=== PATIENT | female | born 1950 | race Caucasian/White ===

== ENCOUNTER 2017-05-02 14:09 | Emergency (ER) | payer OTHER ==
[2017-05-02 14:25] VITALS: BP 129/73; PULSE 83; TEMP 99.3; BMI 23.8
--- NOTE | 2017-05-02 14:30 | PDOC ---
Rapid Medical Evaluation Chief Complaint: Injury Time Seen by Provider: 05/02/17 14:22 Medical Evaluation: Allergies Allergy/AdvReac Type Severity Reaction Status Date / Time No Known Allergies Allergy Verified 05/02/17 14:25 Vital Signs Temp Pulse Resp BP Pulse Ox 99.3 F 83 20 129/73 99 05/02/17 14:21 05/02/17 14:21 05/02/17 14:21 05/02/17 14:21 05/02/17 14:21 05/02/17 14:26 I have performed a brief in-person evaluation of this patient. The patient presents with a chief complaint of: low back pain s/p falling on ice getting out of car yesterday, pain 01/30 "I need an MRI" Pertinent physical exam findings: tenderness midline lumbar spine, patient ambulatory, no loss of sensation to LE I have ordered the following: nothing The patient will proceed to the ED for further evaluation. Discharge Disposition - Diagnosis Back pain - Referrals Referrals: Mae Hernandez MD [Primary Care Provider] - - Patient Instructions - Post Discharge Activity
[2017-05-02] MEDS ORDERED: IBUPROFEN 400 MG TABLET (FP) PO ONE ×2 (15:51→16:06)
[2017-05-02] MEDS ORDERED: traMADol HCL 50 MG TABLET PO ONE (15:51)
--- NOTE | 2017-05-02 15:54 | PDOC ---
History of Present Illness - General Chief Complaint: Injury Stated Complaint: FELL Time Seen by Provider: 05/02/17 14:22 History Source: Patient - History of Present Illness Occurred: reports: yesterday Severity: reports: severe Pain Location: reports: back Method of Injury: Yes: fall Past History - Past Medical History Allergies/Adverse Reactions: Allergies Allergy/AdvReac Type Severity Reaction Status Date / Time No Known Allergies Allergy Verified 05/02/17 14:25 Home Medications: Ambulatory Orders Amlodipine Besylate [Norvasc -] 2.5 mg PO DAILY 05/01/11 Cholecalciferol (Vitamin D3) [Vitamin D3 -] 1 tab PO BID 05/01/11 Levothyroxine Sodium [Synthroid] 25 mcg PO DAILY #30 07/17/11 Atorvastatin Ca [Lipitor (Restricted To Cardiology)] 20 mg PO HS 10/12/11 Prednisone 15 mg PO DAILY 10/12/11 Ciprofloxacin HCl [Cipro] 500 mg PO BID 10/16/11 Tramadol HCl 50 mg PO Q6H #15 tablet MDD 200 mg 05/02/17 Anemia: (HX ITP-DIAGNOSED) Asthma: No Cancer: Yes (CHRONIC LEUKEMIA X 20 YRS) Cardiac Disorders: No CVA: No COPD: No CHF: No Dementia: No Diabetes: No GI Disorders: No Disorders: No HTN: No Hypercholesterolemia: Yes Liver Disease: Yes (PRIMARY BILIARY CIRRHOSIS X 15 YRS) Seizures: No Thyroid Disease: Yes (HYPOTHYROID) Other medical history: PMR - Surgical History Abdominal Surgery: No Appendectomy: No Cardiac Surgery: No Cholecystectomy: No (LIVER BX, 2000) Lung Surgery: No Neurologic Surgery: No Orthopedic Surgery: Yes (ENDOMETROSIS ABLATION) - Suicide/Smoking/Psychosocial Hx Smoking Status: No Smoking History: Current every day smoker Have you smoked in the past 12 months: No Number of Cigarettes Smoked Daily: 4 If you are a former smoker, when did you quit?: 2001 Information on smoking cessation initiated: No Hx Alcohol Use: No Drug/Substance Use Hx: No Substance Use Type: None Hx Substance Use Treatment: No Review of Systems - Review of Systems Musculoskeletal: Yes: Back Pain. No: Muscle Weakness Neurological: No: Numbness, Tingling *Physical Exam - Vital Signs Last Vital Signs Temp Pulse Resp BP Pulse Ox 99.3 F 83 20 129/73 99 05/02/17 14:21 05/02/17 14:21 05/02/17 14:21 05/02/17 14:21 05/02/17 14:21 - Physical Exam General Appearance: Yes: Appropriately Dressed. No: Apparent Distress HEENT: positive: Normal Voice Neck: positive: Supple Respiratory/Chest: negative: Respiratory Distress Musculoskeletal: positive: Vertebral Tenderness (over tailbone) Extremity: positive: Normal Inspection. negative: Swelling Integumentary: positive: Dry, Warm Neurologic: positive: Fully Oriented, Alert, Normal Mood/Affect ED Treatment Course - RADIOLOGY Radiology Studies Ordered: Category Date Time Status SPINE-LUMBAR SACRAL [RAD] Stat Radiology 05/02/17 15:51 Ordered Medical Decision Making - Medical Decision Making 05/02/17 15:52 67-year-old female, history of primary biliary cirrhosis, polymyalgia rheumatica , chronic neck pain, ITP, leukemia, not currently on treatment here with severe lower back pain status post fall last night. States she fell getting out of her son's car. Pain mostly located to lower back, does not radiate and no sensory changes, bowel or bladder incontinence or saddle anesthesia. No hip pain and able to ambulate. Taking [id number] medication with no relief. Denies any other injuries. Patient well-appearing, in no apparent distress but very tender over tailbone. Pain control in progress. Will get x-ray rule out fracture. 05/02/17 15:53 05/02/17 16:31 XRays neg. Dc w/ pain control and PMD f/u 05/02/17 17:12 *DC/Admit/Observation/Transfer Diagnosis at time of Disposition: Back sprain - Discharge Dispostion Disposition: HOME Condition at time of disposition: Good - Prescriptions Prescriptions: Tramadol HCl 50 mg PO Q6H #15 tablet MDD 200 mg - Referrals Referrals: Mae Hernandez MD [Primary Care Provider] - - Patient Instructions Printed Discharge Instructions: DI for Back Strain or Sprain Additional Instructions: X-ray showed no fracture. You most likely suffered a back sprain. Take medication as directed and follow-up with your PMD - Post Discharge Activity
[2017-05-02] MEDS ORDERED: traMADol HCL 50 MG TABLET ONE (16:06)
== END 2017-05-02 16:36 | disposition home or self-care (01) ==
LOC: JERFT 14:09
DX: S39.012A Strain of muscle, fascia and tendon of lower back, initial encounter (principal); W18.39XA Other fall on same level, initial encounter; Y93.89 Activity, other specified; Y92.410 Unspecified street and highway as the place of occurrence of the external cause; D69.3 Immune thrombocytopenic purpura; G89.29 Other chronic pain; M54.2 Cervicalgia
CPT/HCPCS: 72100-TC; 99281-25

== ENCOUNTER 2017-05-05 23:47 | Emergency (ER) | payer OTHER ==
[2017-05-05 23:59] VITALS: BP 116/67; PULSE 88; TEMP 100.4; BMI 24.2
[2017-05-06] MEDS ORDERED: morphine CARPU-JECT 4 MG/1 ML DISP.SYRIN IM ONE (00:09)
[2017-05-06] MEDS ORDERED: morphine SULFATE 4 MG/ML VIAL ONE (00:13)
--- NOTE | 2017-05-06 00:24 | PDOC ---
History of Present Illness - General Chief Complaint: Back Pain Stated Complaint: LOWER BACK PAIN Time Seen by Provider: 05/06/17 00:08 - History of Present Illness Initial Comments: This 67-year-old woman with multiple medical problems including primary biliary cirrhosis, chronic leukemia (X 20 years), polymyalgia rheumatica, history of ITP and chronic low back pain, visiting her son in the area presents with persistent lower back pain with radiation to bilateral groin areas. She denies trauma and states that she has had chronic low back pain , worsening for a month. Because of her history of leukemia, she is worried about bone metastases. Pain worsens with lying down and is better with movement. She denies dysuria/ hematuria. She states that she urinates frequently but does not have urgency, stating that she drinks large amounts of water she has no difficulty with bowel movements or urinary retention. She has no groin anesthesia. She denies nausea/vomiting/diarrhea. Patient states that she has been seeing her PCP in [place], [place] ( where she usually resides). Because of her history of primary biliary cirrhosis and possible renal disease, she avoids nonsteroidal anti- inflammatories and acetaminophen. Her PCP prescribes morphine sulfateER 15 mg which she takes twice a day. She states this is been helpful for pain control. Patient states that she ran out of her morphine sulfate ER "3 days ago" Patient has a history of being seen by specialty physicians (service vehicle operator/ capacity management specialist/director systems) in [place] but admits to poor compliance with follow up with these doctors. Past History - Past Medical History Allergies/Adverse Reactions: Allergies Allergy/AdvReac Type Severity Reaction Status Date / Time No Known Allergies Allergy Verified 05/05/17 23:48 Home Medications: Ambulatory Orders Amlodipine Besylate [Norvasc -] 2.5 mg PO DAILY 05/01/11 Cholecalciferol (Vitamin D3) [Vitamin D3 -] 1 tab PO BID 05/01/11 Levothyroxine Sodium [Synthroid] 25 mcg PO DAILY #30 07/17/11 Aspirin [ASA -] 325 mg PO DAILY 05/05/17 Diazepam [Valium] 5 mg PO DAILY 05/05/17 Docusate Sodium [Colace] 100 mg PO 05/05/17 Ursodiol [Actigall] 300 mg PO 05/05/17 Morphine Sulfate [Morphine Sulfate ER] 15 mg PO BID #20 tablet.er MDD 2 tabs Anemia: (HX ITP-DIAGNOSED) Asthma: No Cancer: Yes (CHRONIC LEUKEMIA X 20 YRS) Cardiac Disorders: No CVA: No COPD: No CHF: No Dementia: No Diabetes: No GI Disorders: No Disorders: No HTN: No Hypercholesterolemia: Yes Liver Disease: Yes (PRIMARY BILIARY CIRRHOSIS X 15 YRS) Seizures: No Thyroid Disease: Yes (HYPOTHYROID) - Surgical History Abdominal Surgery: No Appendectomy: No Cardiac Surgery: No Cholecystectomy: (LIVER BX, 2000) Lung Surgery: No Neurologic Surgery: No Orthopedic Surgery: Yes (ENDOMETROSIS ABLATION) - Suicide/Smoking/Psychosocial Hx Smoking Status: No Smoking History: Current every day smoker Have you smoked in the past 12 months: No Number of Cigarettes Smoked Daily: 4 If you are a former smoker, when did you quit?: 2001 Information on smoking cessation initiated: Yes 'Breaking Loose' booklet given: 05/05/17 Hx Alcohol Use: No Drug/Substance Use Hx: No Substance Use Type: None Hx Substance Use Treatment: No Review of Systems - Review of Systems Able to Perform ROS?: Yes Comments:: 12 point review of systems is negative except for what is noted in the history of present illness *Physical Exam - Vital Signs Last Vital Signs Temp Pulse Resp BP Pulse Ox 100.4 F H 88 18 116/67 100 05/05/17 23:53 05/05/17 23:53 05/05/17 23:53 05/05/17 23:53 05/05/17 23:53 - Physical Exam Comments: GENERAL: Adult female, standing at bedside, tearful; appearing in moderate distress secondary to lower back pain; alert and oriented 3 HEAD: Normal with no signs of trauma. EYES: PERRLA, EOMI, sclera anicteric, conjunctiva clear. ENT: Ears normal, nares patent, oropharynx clear without exudates. Moist mucous membranes. NECK: Normal range of motion, supple without lymphadenopathy, JVD, or masses. LUNGS: Breath sounds equal, clear to auscultation bilaterally. No wheezes, and no crackles. HEART:Regular rate and rhythm, normal S1 and S2 without murmur, rub or gallop. ABDOMEN:.normal bowel sounds No guarding,tenderness or rebound.No masses No distention. EXTREMITIES: Normal range of motion, no edema. No clubbing or cyanosis. No erythema, or tenderness. NEUROLOGICAL: Cranial nerves II through XII grossly intact. Normal speech. No focal neurological deficits. MUSCULOSKELETAL: Back-mild tenderness to palpation bilateral sacroiliac joints extending anteriorly to pubic rami No anterior hip joint tenderness bilaterally; no pain on movement of either hip joint No pain on straight leg raising; no tenderness/edema/deformity of either thigh/knee/lower leg SKIN: Warm, Dry, normal turgor, no rashes or lesions noted. Progress Note - Progress Note Progress Note: After patient was discharged, medical record was reviewed: Patient was seen at [facility] 3 days ago for lower back pain . She stated at that time that she had fallen the day prior to being evaluated. Lumbar spine x-rays at that time revealed no evidence of fracture or other abnormality. She was prescribed tramadol. Medical Decision Making - Medical Decision Making This 67-year-old woman with a history of chronic back pain treated by her PCP in [place] with morphine sulfate ER 15 mg twice a day(prescription bottle was presented) which she recently ran out of. She has had increasing pain since stopping able to take her morphine sulfate, to the point that she has been crying at night secondary to the pain (according to her son and sister who accompanied the patient to the emergency room). Exam revealed mild to moderate tenderness along the sacroiliac joints bilaterally, extending anteriorly to the pubic rami. Hip joints were nontender and full mobility was present. Lumbar vertebrae were mildly tender. Clinical presentation most consistent with musculoskeletal origin pain of the pelvis. Little evidence present for acute abdominal/pelvic organ process. However, patient needs more workup to fully understand origin of the pain, especially in light of her malignancy and other medical problems. She also needs general medical evaluation. The patient and her son state that she will be in the area for at least the next week. It is imperative that she follow-up with a general medical doctor as well as an orthopedist during that time. Since patient has poor compliance with medical follow-up when she is at home in [place], it was emphasized to her son that he has an opportunity to investigate the origin of her pain more thoroughly. The patient's son has Dr. Hernandez as a PMD, and the patient herself has seen him in the past. The patient should be seen by him within the next few days. Also, referral information for Dr. Mendosa/Josué/Mukul provided. Meanwhile , patient will be given morphine sulfate 4 mg IM for pain control overnight. [facility] WELDING INSTRUCTOR search conducted (#[id number]): No history of narcotic prescriptions in [facility] Prescription for morphine sulfate ER 15 mg twice a day (#20) sent to her pharmacy. *DC/Admit/Observation/Transfer Diagnosis at time of Disposition: Sacroiliac joint pain - Discharge Dispostion Disposition: HOME Condition at time of disposition: Stable - Prescriptions Prescriptions: Morphine Sulfate [Morphine Sulfate ER] 15 mg PO BID #20 tablet.er MDD 2 tabs - Referrals Referrals: Mae Hernandez MD [Staff Physician] - 2 Days Abraham Mendosa MD [Staff Physician] - 3 days - Patient Instructions Printed Discharge Instructions: Sacroiliac Joint Pain Additional Instructions: morphine sulfate ER 15 mg twice a day as previously prescribed Follow-up with within the next 2-3 days Follow-up with orthopedist (Dr. Mendosa group) within the next 3-4 days Return to ER if you have severe persistent pain - Post Discharge Activity
== END 2017-05-06 00:28 | disposition home or self-care (01) ==
LOC: FER 23:47
DX: M53.3 Sacrococcygeal disorders, not elsewhere classified (principal); G89.29 Other chronic pain; C95.10 Chronic leukemia of unspecified cell type not having achieved remission; D69.3 Immune thrombocytopenic purpura; K74.5 Biliary cirrhosis, unspecified; M35.3 Polymyalgia rheumatica
CPT/HCPCS: 99281-25

== ENCOUNTER 2020-08-20 21:26 | Emergency (ER) | payer OTHER ==
[2020-08-20 21:36] VITALS: BP 118/58; PULSE 79; TEMP 97; BMI 23.6
== END 2020-08-20 23:23 | disposition home or self-care (01) ==
LOC: JER 21:26
DX: S22.32XA Fracture of one rib, left side, initial encounter for closed fracture (principal)
CPT/HCPCS: 71046-TC-FY; 99284-25

== ENCOUNTER 2020-11-13 13:54 | Emergency (ER) | payer OTHER ==
[2020-11-13 14:15] VITALS: BMI 24.2
[2020-11-13 16:44] LABS: BASO % 1.8 % (0-2.0); EOS % 4.7 % (0-4.5); HEMOGLOBIN 9.3 GM/dl (10.7-15.3); LYMPH % 15.3 % (8-40); MCH 33.8 pg (25.7-33.7); MCHC 34.5 g/dl (32.0-36.0); MEAN PLT VOLUME 9.9 fl (7.5-11.1); MONO % 12.2 % (3.8-10.2); PLATELET COUNT 133 10^3/uL (134-434); RBC 2.75 M/mm3 (3.60-5.2); RDW 16.3 % (11.6-15.6); WHITE BLOOD COUNT 4.6 K/mm3 (4.0-10.8)
[2020-11-13 16:53] LABS: BILIRUBIN,TOTAL 1.3 mg/dl (0.2-1); CALCIUM 7.9 mg/dl (8.5-10); CREATININE 1.6 mg/dl (0.55-1.3); TOT PROT 6.5 g/dl (6.4-8.2)
[2020-11-13] MEDS ORDERED: POTASSIUM CHLORIDE TABS 20 MEQ TABLET.ER (FP) PO ONE ×2 (17:24→17:28)
[2020-11-13] MEDS ORDERED: KCL 10 MEQ IVPB 20 MEQ/200 ML INFUS.BAG IVPB ONE (17:29)
[2020-11-13] MEDS: KCL 10 MEQ IVPB 10 MEQ/100 ML INFUS.BAG IVPB SCH ×2 (17:50→18:52)
[2020-11-13 21:25] LABS: CALCIUM 7.5 mg/dl (8.5-10); CREATININE 1.5 mg/dl (0.55-1.3)
[2020-11-13] MEDS ORDERED: AMOX TR/POT CLAV 875MG/125MG TABLETS (FP) PO ONE (21:35)
[2020-11-13 21:47] VITALS: BP 133/76; PULSE 78; TEMP 98
[2020-11-13] MEDS ORDERED: AMOX TR/POT CLAV 875MG/125MG TABLETS (FP) ONE (21:49)
== END 2020-11-13 22:00 | disposition home or self-care (01) ==
LOC: FER 13:54
PROC: 3E033NZ Introduction of Analgesics, Hypnotics, Sedatives into Peripheral Vein, Percutaneous Approach (ICD-10-PCS; principal; 2020-11-13)
DX: K52.9 Noninfective gastroenteritis and colitis, unspecified (principal); E87.6 Hypokalemia; N18.9 Chronic kidney disease, unspecified
CPT/HCPCS: 36415; 74176-TC; 80048; 80053; 81003; 83690; 85025; 87086; 99285-25

== ENCOUNTER 2020-12-09 15:22 | Emergency (ER) | payer OTHER ==
[2020-12-09 15:28] VITALS: BP 107/57; PULSE 98; TEMP 98.7; BMI 21.9
[2020-12-09] MEDS ORDERED: FAMOTIDINE 20 MG/50 ML IVPB 20 MG/50 ML MG IVPB ONE ×2 (16:19→16:25)
[2020-12-09] MEDS ORDERED: ONDANSETRON 4 MG/2 ML VIAL IVPUSH ONE (16:20)
[2020-12-09] MEDS ORDERED: ACETAMINOPHEN 325 MG TABLET (FP) PO ONE ×2 (16:22→16:39)
[2020-12-09] MEDS ORDERED: fentaNYL CITRATE 250 MCG/5 ML VIAL IVPUSH ONE (16:24)
[2020-12-09] MEDS ORDERED: ONDANSETRON 4 MG/2 ML VIAL ONE (16:25)
[2020-12-09 16:53] LABS: BASO % 0.3 % (0-2.0); EOS % 1.3 % (0-4.5); HEMOGLOBIN 9.5 GM/dL (10.7-15.3); MCH 33.3 pg (25.7-33.7); MCHC 33.8 g/dl (32.0-36.0); MEAN CELL VOLUME 98.6 fl (80-96); MEAN PLT VOLUME 9.6 fl (7.5-11.1); MONO % 11.4 % (3.8-10.2); PLATELET COUNT 133 10^3/uL (134-434); RBC 2.83 M/mm3 (3.60-5.2); RDW 16.8 % (11.6-15.6); WHITE BLOOD COUNT 10.9 K/mm3 (4.0-10.0)
[2020-12-09] MEDS ORDERED: CEFTRIAXONE 1 MG in DEXTROSE 5%-WATER - 50 ML IVPB ONE (17:05)
[2020-12-09 17:14] LABS: CHLORIDE 107 mmol/L (98-107); SODIUM 137 mmol/L (136-145)
[2020-12-09 17:16] LABS: ANION GAP 10 MMOL/L (8-16); BLOOD UREA NITROGEN 28.6 mg/dL (7-18); CALCIUM 7.9 mg/dL (8.5-10.1); CO2 20 mmol/L (21-32)
[2020-12-09 17:17] LABS: ALBUMIN 2.2 g/dl (3.4-5.0); GLUCOSE,RANDOM 79 mg/dL (74-106)
[2020-12-09 17:19] LABS: CREATININE 2.3 mg/dL (0.55-1.3); SGOT/AST 26 U/L (15-37); SGPT/ALT 13 U/L (13-61)
[2020-12-09 17:21] LABS: BILIRUBIN,TOTAL 1.5 mg/dL (0.2-1); TOT PROT 7.2 g/dl (6.4-8.2)
[2020-12-09 17:22] LABS: ALK PHOS 130 U/L (45-117)
[2020-12-09 17:42] LABS: LIPASE 1816 U/L (73-393)
[2020-12-09] MEDS ORDERED: morphine CARPU-JECT 4 MG/1 ML DISP.SYRIN IVPUSH ONE (18:21)
[2020-12-09 18:39] LABS: CHOLESTEROL 85 mg/dL (50-200); TRIGLYCERIDES 84 mg/dL (0-150)
[2020-12-09 18:40] LABS: LDL CHOLESTEROL (ONLY SJRH) 33 mg/dL (5-100)
[2020-12-09 18:41] LABS: HDL CHOLESTEROL 27 mg/dL (40-60)
[2020-12-09] MEDS ORDERED: morphine SULFATE 4 MG/ML VIAL ONE (19:39)
[2020-12-09] MEDS ORDERED: KCL 10 MEQ IVPB 30 MEQ/300 ML INFUS.BAG IVPB ONE (19:39)
[2020-12-09] MEDS ORDERED: CEFTRIAXONE 1 GM/50 ML BAG ONE (19:39)
[2020-12-09] MEDS: KCL 10 MEQ IVPB 10 MEQ/100 ML INFUS.BAG IVPB SCH ×2 (20:23→23:04)
[2020-12-09] MEDS ORDERED: LACTATED RINGERS SOLUTION 1000 ML INFUS.BAG IV ONE ×2 (22:51)
[2020-12-10] MEDS: KCL 10 MEQ IVPB 10 MEQ/100 ML INFUS.BAG IVPB SCH (01:32)
== END 2020-12-10 01:57 | disposition short-term general hospital (02) ==
LOC: JER 15:22
PROC: 3E033GC Introduction of Other Therapeutic Substance into Peripheral Vein, Percutaneous Approach (ICD-10-PCS; principal; 2020-12-09)
DX: K85.90 Acute pancreatitis without necrosis or infection, unspecified (principal); N17.9 Acute kidney failure, unspecified; D64.9 Anemia, unspecified
CPT/HCPCS: 36415; 70450-TC; 74176-TC; 76700-TC; 80053; 80061; 82140; 82550; 82553; 83690; 84484; 85025; 87040; 93005; 93010; 99285-25; C9803; U0003; U0005

== ENCOUNTER 2020-12-31 13:21 | Inpatient (IN) | payer OTHER ==
[2020-12-31 16:00] LABS: BASO % 0.5 % (0-2.0); EOS % 7.1 % (0-4.5); HEMATOCRIT 22.4 % (32.4-45.2); HEMOGLOBIN 7.6 GM/dL (10.7-15.3); MCH 33.6 pg (25.7-33.7); MCHC 33.9 g/dl (32.0-36.0); MEAN CELL VOLUME 98.8 fl (80-96); MEAN PLT VOLUME 9.3 fl (7.5-11.1); MONO % 8.8 % (3.8-10.2); NEUT % 71.6 % (42.8-82.8); PLATELET COUNT 156 10^3/uL (134-434); RBC 2.26 M/mm3 (3.60-5.2); RDW 17.8 % (11.6-15.6); WHITE BLOOD COUNT 4.3 K/mm3 (4.0-10.0)
[2020-12-31 16:42] LABS: ALBUMIN 2.3 g/dl (3.4-5.0); BLOOD UREA NITROGEN 19.7 mg/dL (7-18); CALCIUM 8.8 mg/dL (8.5-10.1)
[2020-12-31 16:45] LABS: CREATININE 1.5 mg/dL (0.55-1.3)
[2020-12-31 16:47] LABS: TOT PROT 7.9 g/dl (6.4-8.2)
[2020-12-31] MEDS ORDERED: morphine SO4 SUSTAINED ACTING 15 MG TABLET.SA ONE (23:36)
[2020-12-31] MEDS: morphine SO4 SUSTAINED ACTING 15 MG TABLET.SA PO PRN (23:37)
[2021-01-01 02:54] VITALS: BMI 24.7
[2021-01-01] MEDS ORDERED: PT OWN MED DRAWER 7, Y5N ONE ×4 (05:27→16:24)
[2021-01-01] MEDS: URSODIOL 300 MG CAPSULE PO SCH ×2 (06:34→16:47)
[2021-01-01] MEDS: LEVOTHYROXINE NA 50 MCG TABLET (FP) PO SCH (06:34)
[2021-01-01] MEDS: SPIRONOLACTONE 25 MG TABLET PO SCH (09:45)
[2021-01-01] MEDS: LACTULOSE 20 GM/30 ML UDC (FOR ORAL USE ONLY) PO SCH ×2 (09:45→21:49)
[2021-01-01 09:52] LABS: BASO % 1.1 % (0-2.0); EOS % 11.3 % (0-4.5); HEMATOCRIT 22.6 % (32.4-45.2); HEMOGLOBIN 7.8 GM/dL (10.7-15.3); LYMPH % 16.9 % (8-40); MCH 32.9 pg (25.7-33.7); MCHC 34.3 g/dl (32.0-36.0); MEAN CELL VOLUME 95.7 fl (80-96); MEAN PLT VOLUME 8.5 fl (7.5-11.1); MONO % 12.1 % (3.8-10.2); NEUT % 58.6 % (42.8-82.8); PLATELET COUNT 107 10^3/uL (134-434); RBC 2.36 M/mm3 (3.60-5.2); RDW 18.3 % (11.6-15.6); WHITE BLOOD COUNT 3.2 K/mm3 (4.0-10.0)
[2021-01-01 10:17] LABS: CALCIUM 8.6 mg/dL (8.5-10.1)
[2021-01-01 10:21] LABS: CREATININE 1.1 mg/dL (0.55-1.3)
[2021-01-01] MEDS: traZODone HCL 50 MG TABLET (FP) PO SCH (21:49)
[2021-01-02] MEDS: URSODIOL 300 MG CAPSULE PO SCH ×2 (06:54→17:20)
[2021-01-02] MEDS: LEVOTHYROXINE NA 50 MCG TABLET (FP) PO SCH (06:54)
[2021-01-02] MEDS: LACTULOSE 20 GM/30 ML UDC (FOR ORAL USE ONLY) PO SCH ×3 (09:56→21:56)
[2021-01-02] MEDS: SPIRONOLACTONE 25 MG TABLET PO SCH (09:57)
[2021-01-02] MEDS ORDERED: PT OWN MED DRAWER 7, Y5N ONE (10:53)
[2021-01-02] MEDS: morphine SO4 SUSTAINED ACTING 15 MG TABLET.SA PO PRN (21:56)
[2021-01-02] MEDS: traZODone HCL 50 MG TABLET (FP) PO SCH (21:58)
[2021-01-03] MEDS: URSODIOL 300 MG CAPSULE PO SCH ×2 (06:30→18:03)
[2021-01-03] MEDS: LEVOTHYROXINE NA 50 MCG TABLET (FP) PO SCH (06:30)
[2021-01-03] MEDS ORDERED: PT OWN MED DRAWER 7, Y5N ONE (08:02)
[2021-01-03] MEDS: LACTULOSE 20 GM/30 ML UDC (FOR ORAL USE ONLY) PO SCH ×2 (09:23→21:43)
[2021-01-03] MEDS: SPIRONOLACTONE 25 MG TABLET PO SCH (09:23)
[2021-01-03] MEDS: morphine SO4 SUSTAINED ACTING 15 MG TABLET.SA PO PRN (09:29)
[2021-01-03 10:28] LABS: BASO % 1.1 % (0-2.0); HEMATOCRIT 26.1 % (32.4-45.2); LYMPH % 19.3 % (8-40); MCH 33.2 pg (25.7-33.7); MCHC 34.4 g/dl (32.0-36.0); MEAN CELL VOLUME 96.5 fl (80-96); MONO % 9.8 % (3.8-10.2); NEUT % 62.8 % (42.8-82.8); PLATELET COUNT 154 10^3/uL (134-434); RBC 2.71 M/mm3 (3.60-5.2); RDW 19.2 % (11.6-15.6); WHITE BLOOD COUNT 5.5 K/mm3 (4.0-10.0)
[2021-01-03 10:33] LABS: INR 1.5 (0.83-1.09); PROTHROMBIN TIME (PATIENT) 17.9 SEC (9.7-13.0)
[2021-01-03 10:35] LABS: ACTIVATED PTT 38.2 SECONDS (25.2-36.5)
[2021-01-03 10:56] LABS: CALCIUM 9.1 mg/dL (8.5-10.1); CREATININE 1.3 mg/dL (0.55-1.3)
[2021-01-03] MEDS: traZODone HCL 50 MG TABLET (FP) PO SCH (21:43)
[2021-01-04] MEDS ORDERED: PT OWN MED DRAWER 7, Y5N ONE ×2 (06:23→10:14)
[2021-01-04] MEDS: URSODIOL 300 MG CAPSULE PO SCH (06:31)
[2021-01-04] MEDS: LEVOTHYROXINE NA 50 MCG TABLET (FP) PO SCH (06:31)
[2021-01-04] MEDS: LACTULOSE 20 GM/30 ML UDC (FOR ORAL USE ONLY) PO SCH (10:27)
[2021-01-04] MEDS: SPIRONOLACTONE 25 MG TABLET PO SCH (10:27)
[2021-01-04 16:30] VITALS: BP 131/50; PULSE 72; TEMP 98.1
[2021-01-04 18:07] LABS: FREE KAPPA,SERUM 217.4 mg/L (3.3-19.4)
== END 2021-01-04 16:34 | disposition home health service (06) | DRG 841 ==
LOC: JER 13:21 → JERBED 18:27 → OBSVTOIN 22:19 → J8W 01-01 01:41
PROVIDERS: ADMIT Internal Medicine; ATTEND Internal Medicine
PROC: 30233N1 Transfusion of Nonautologous Red Blood Cells into Peripheral Vein, Percutaneous Approach (ICD-10-PCS; principal; 2020-12-31)
DX: C95.90 Leukemia, unspecified not having achieved remission (principal); D69.3 Immune thrombocytopenic purpura; D64.9 Anemia, unspecified; M35.3 Polymyalgia rheumatica; F32.9 Major depressive disorder, single episode, unspecified; E78.5 Hyperlipidemia, unspecified; Z66 Do not resuscitate; K74.60 Unspecified cirrhosis of liver; E03.9 Hypothyroidism, unspecified
CPT/HCPCS: 36415; 36430; 71046-TC-FY; 80048; 80053; 82272; 82728; 82784; 83540; 83550; 83615; 83883; 84155; 84165; 84550; 85025; 85045; 85384; 85610; 85730; 86850; 86900; 86901; 86922; 93005; 93010; 97116-GP; 97161-GP; 99285-25; C9803; G0378; P9058; U0003; U0005

== ENCOUNTER 2021-02-20 17:01 | Emergency (ER) | payer OTHER ==
[2021-02-20 17:20] VITALS: BMI 25.6
[2021-02-20] MEDS ORDERED: SODIUM CHLORIDE 1,000 ML IV STA (17:57)
[2021-02-20] MEDS ORDERED: PIPERACILLIN/TAZOB 4.5 GM 4.5 GM in DEXTROSE 5%-WATER 100 ML IVPB ONE (18:08)
[2021-02-20] MEDS ORDERED: VANCOMYCIN 1 GM in D5W (PRE-DOCKED) 1,000 MG/250 ML IVPB ONE (18:08)
[2021-02-20] MEDS ORDERED: morphine CARPU-JECT 4 MG/1 ML DISP.SYRIN IVPUSH ONE (18:30)
[2021-02-20] MEDS ORDERED: ACETAMINOPHEN 1000 MG/100 ML VIAL IVPB ONE (18:30)
[2021-02-20] MEDS ORDERED: ACETAMINOPHEN INJECTION 100 ML IVPB ONE (18:39)
[2021-02-20] MEDS ORDERED: PIPERACILLIN/TAZOB 4.5 GM 4.5 GM/100 ML BAG IVPB ONE (18:39)
[2021-02-20] MEDS ORDERED: morphine SULFATE 4 MG/ML VIAL ONE (18:39)
[2021-02-20] MEDS ORDERED: VANCOMYCIN 1 GRAM (PRE-DOCKED) 1,000 MG/250 ML BAG IVPB ONE (18:40)
[2021-02-20 19:11] LABS: BASO % 1.2 % (0-2.0); HEMATOCRIT 28.8 % (32.4-45.2); HEMOGLOBIN 9.7 GM/dL (10.7-15.3); MCH 34.6 pg (25.7-33.7); MCHC 33.8 g/dl (32.0-36.0); MEAN CELL VOLUME 102.1 fl (80-96); MONO % 11.1 % (3.8-10.2); NEUT % 73.7 % (42.8-82.8); PLATELET COUNT 132 10^3/uL (134-434); RBC 2.82 M/mm3 (3.60-5.2); RDW 18.2 % (11.6-15.6); WHITE BLOOD COUNT 3.8 K/mm3 (4.0-10.0)
[2021-02-20 19:13] LABS: ALBUMIN 1.9 g/dl (3.4-5.0); BLOOD UREA NITROGEN 23.5 mg/dL (7-18); CALCIUM 8.9 mg/dL (8.5-10.1)
[2021-02-20 19:16] LABS: CREATININE 1.4 mg/dL (0.55-1.3)
[2021-02-20 19:18] LABS: BILIRUBIN,TOTAL 1.3 mg/dL (0.2-1); TOT PROT 7.2 g/dl (6.4-8.2)
[2021-02-21] MEDS ORDERED: HYDROmorphone HCL CARPU-JECT 2 MG/1 ML DISP.SYRIN IVPUSH ONE (00:47)
[2021-02-21] MEDS ORDERED: HYDROmorphone HCl 2 MG/ML VIAL ONE (00:57)
[2021-02-21 03:41] VITALS: BP 105/61; PULSE 60; TEMP 98.1
== END 2021-02-21 03:43 | disposition short-term general hospital (02) ==
LOC: JER 17:01
PROC: 3E0333Z Introduction of Anti-inflammatory into Peripheral Vein, Percutaneous Approach (ICD-10-PCS; principal; 2021-02-20)
PROC: 3E033NZ Introduction of Analgesics, Hypnotics, Sedatives into Peripheral Vein, Percutaneous Approach (ICD-10-PCS; 2021-02-20)
PROC: 3E033NZ Introduction of Analgesics, Hypnotics, Sedatives into Peripheral Vein, Percutaneous Approach (ICD-10-PCS; 2021-02-20)
PROC: 3E03329 Introduction of Other Anti-infective into Peripheral Vein, Percutaneous Approach (ICD-10-PCS; 2021-02-20)
PROC: 3E03329 Introduction of Other Anti-infective into Peripheral Vein, Percutaneous Approach (ICD-10-PCS; 2021-02-20)
PROC: 3E0337Z Introduction of Electrolytic and Water Balance Substance into Peripheral Vein, Percutaneous Approach (ICD-10-PCS; 2021-02-20)
DX: H66.91 Otitis media, unspecified, right ear (principal); H60.21 Malignant otitis externa, right ear; H70.001 Acute mastoiditis without complications, right ear
CPT/HCPCS: 36415; 70481-TC; 80053; 85025; 87040; 96374; 96375; 99285-25; C9803; J0131; Q9967; U0003; U0005

== ENCOUNTER 2021-04-22 18:09 | Inpatient (IN) | payer OTHER ==
[2021-04-22 18:33] VITALS: BMI 23.6
[2021-04-22 21:41] LABS: BASO % 0.6 % (0-2.0); EOS % 4.4 % (0-4.5); HEMATOCRIT 23.8 % (32.4-45.2); LYMPH % 9.5 % (8-40); MCH 33.5 pg (25.7-33.7); MCHC 33.5 g/dl (32.0-36.0); MEAN PLT VOLUME 9.3 fl (7.5-11.1); MONO % 12.8 % (3.8-10.2); NEUT % 72.7 % (42.8-82.8); PLATELET COUNT 126 10^3/uL (134-434); RBC 2.38 M/mm3 (3.60-5.2); RDW 16.3 % (11.6-15.6); WHITE BLOOD COUNT 5.6 K/mm3 (4.0-10.0)
[2021-04-22 22:00] LABS: CHLORIDE 112 mmol/L (98-107); SODIUM 136 mmol/L (136-145)
[2021-04-22 22:01] LABS: CALCIUM 7.9 mg/dL (8.5-10.1)
[2021-04-22 22:02] LABS: ALBUMIN 1.7 g/dl (3.4-5.0); ANION GAP 7 MMOL/L (8-16); BLOOD UREA NITROGEN 27.8 mg/dL (7-18); CO2 16 mmol/L (21-32); GLUCOSE,RANDOM 85 mg/dL (74-106); MAGNESIUM 2.2 mg/dL (1.8-2.4)
[2021-04-22 22:06] LABS: CREATININE 1.7 mg/dL (0.55-1.3); PHOSPHOROUS 3.3 mg/dL (2.5-4.9); SGOT/AST 32 U/L (15-37); SGPT/ALT 21 U/L (13-61)
[2021-04-22 22:07] LABS: BILIRUBIN,TOTAL 1.3 mg/dL (0.2-1); TOT PROT 6.9 g/dl (6.4-8.2)
[2021-04-22 22:08] LABS: ALK PHOS 139 U/L (45-117)
[2021-04-22] MEDS ORDERED: LACTATED RINGERS SOLUTION 1,000 ML IV STA (22:43)
[2021-04-23] MEDS ORDERED: PIPERACILLIN/TAZOB 4.5 GM 4.5 GM in DEXTROSE 5%-WATER 100 ML IVPB ONE ×2 (03:09→08:23)
[2021-04-23] MEDS ORDERED: PIPERACILLIN/TAZOB 4.5 GM 4.5 GM/100 ML BAG IVPB ONE ×3 (03:29→17:02)
[2021-04-23 04:34] LABS: EPI CELLS 10 /uL (0-25.1); HYALINE CASTS 0 /uL (0-3.1); URINE APPEARANCE CLEAR; URINE BACTERIA 101 /uL (0-1359); URINE BILIRUBIN NEGATIVE (NEGATIVE); URINE COLOR YELLOW; URINE GLUCOSE (UA) NEGATIVE (NEGATIVE); URINE KETONE NEGATIVE (NEGATIVE); URINE LEUK ESTERASE TRACE (NEGATIVE); URINE NITRITE NEGATIVE (NEGATIVE); URINE PROTEIN NEGATIVE (NEGATIVE); URINE RBC 1 /uL (0-23.9); URINE UROBILINOGEN 0.2 mg/dL (0.2-1.0); URINE WBC 11 /uL (0-25.8)
[2021-04-23] MEDS ORDERED: POTASSIUM CHLORIDE TABS 20 MEQ TABLET.ER (FP) PO ONE ×2 (05:39→05:45)
[2021-04-23] MEDS ORDERED: LACTATED RINGERS SOLUTION 1000 ML INFUS.BAG IV ONE ×2 (07:18→08:32)
[2021-04-23 09:19] LABS: BASO % 1.4 % (0-2.0); EOS % 4.8 % (0-4.5); HEMATOCRIT 23.6 % (32.4-45.2); HEMOGLOBIN 7.7 GM/dL (10.7-15.3); LYMPH % 13.4 % (8-40); MCH 33.2 pg (25.7-33.7); MCHC 32.8 g/dl (32.0-36.0); MEAN CELL VOLUME 101.3 fl (80-96); MEAN PLT VOLUME 10.1 fl (7.5-11.1); MONO % 12.9 % (3.8-10.2); NEUT % 67.5 % (42.8-82.8); PLATELET COUNT 122 10^3/uL (134-434); RBC 2.33 M/mm3 (3.60-5.2); RDW 16.1 % (11.6-15.6); WHITE BLOOD COUNT 3.5 K/mm3 (4.0-10.0)
[2021-04-23 09:45] LABS: ALBUMIN 1.4 g/dl (3.4-5.0); CALCIUM 7.7 mg/dL (8.5-10.1)
[2021-04-23 09:47] LABS: BLOOD UREA NITROGEN 25.9 mg/dL (7-18)
[2021-04-23 09:49] LABS: CREATININE 1.5 mg/dL (0.55-1.3)
[2021-04-23 09:50] LABS: BILIRUBIN,TOTAL 1.2 mg/dL (0.2-1); TOT PROT 6.2 g/dl (6.4-8.2)
[2021-04-23] MEDS: LACTATED RINGERS SOLUTION 1000 ML INFUS.BAG IV ONE ×2 (10:24→10:30)
[2021-04-23] MEDS ORDERED: LACTULOSE 20 GM/30 ML UDC (FOR ORAL USE ONLY) PO PRN (11:33)
[2021-04-23 14:19] LABS: PROTHROMBIN TIME (PATIENT) 23.5 SEC (9.7-13.0)
[2021-04-23 14:20] LABS: INR 1.99 (0.83-1.09)
[2021-04-23 15:07] VITALS: TEMP 97.8
[2021-04-23] MEDS ORDERED: PIPERACILLIN/TAZOB 4.5 GM 4.5 GM in DEXTROSE 5%-WATER 100 ML IVPB SCH (18:00)
[2021-04-23 19:44] VITALS: BP 95/54; PULSE 70
[2021-04-23] MEDS ORDERED: traZODone HCL 50 MG TABLET (FP) PO SCH (22:00)
[2021-04-24] MEDS ORDERED: LEVOTHYROXINE NA 50 MCG TABLET (FP) PO SCH (07:00)
[2021-04-24] MEDS ORDERED: URSODIOL 300 MG CAPSULE PO SCH (10:00)
== END 2021-04-23 19:30 | disposition short-term general hospital (02) | DRG 444 ==
LOC: JER 18:09 → JERBED 20:54 → UNDOADMOB 20:54 → JERBED 04-23 11:37 → OBSVTOIN 04-23 11:37 → INTOOBSV 04-23 11:37
DX: K83.09 Other cholangitis (principal); K83.1 Obstruction of bile duct; D69.3 Immune thrombocytopenic purpura; E72.20 Disorder of urea cycle metabolism, unspecified; C95.10 Chronic leukemia of unspecified cell type not having achieved remission; K82.8 Other specified diseases of gallbladder; E03.9 Hypothyroidism, unspecified; K21.9 Gastro-esophageal reflux disease without esophagitis; E78.5 Hyperlipidemia, unspecified; R11.2 Nausea with vomiting, unspecified; R11.14 Bilious vomiting; I95.9 Hypotension, unspecified; D64.9 Anemia, unspecified; M35.3 Polymyalgia rheumatica; M54.50 Low back pain, unspecified; R10.31 Right lower quadrant pain; R63.0 Anorexia; Z68.23 Body mass index [BMI] 23.0-23.9, adult
CPT/HCPCS: 36415; 70450-TC; 71045-TC-FY; 72125-TC; 74176-TC; 80053; 81003; 82140; 82272; 82550; 83605; 83735; 84100; 84484; 85025; 85610; 87086; 87186; 93005; 93010; 99285-25; C9803-CS; G0378; U0003; U0005

== ENCOUNTER 2021-09-28 23:45 | Inpatient (IN) | payer OTHER ==
[2021-09-29 01:21] LABS: BASO % 0.7 % (0-2.0); EOS % 3.5 % (0-4.5); HEMATOCRIT 26.7 % (32.4-45.2); HEMOGLOBIN 8.7 GM/dL (10.7-15.3); LYMPH % 15.2 % (8-40); MCH 33.3 pg (25.7-33.7); MCHC 32.7 g/dl (32.0-36.0); MEAN CELL VOLUME 101.9 fl (80-96); MEAN PLT VOLUME 9.3 fl (7.5-11.1); MONO % 18.1 % (3.8-10.2); NEUT % 62.5 % (42.8-82.8); PLATELET COUNT 132 10^3/uL (134-434); RBC 2.62 M/mm3 (3.60-5.2); RDW 18.7 % (11.6-15.6); WHITE BLOOD COUNT 5.1 K/mm3 (4.0-10.0)
[2021-09-29 01:29] LABS: INR 1.48 (0.83-1.09); PROTHROMBIN TIME (PATIENT) 17.1 SEC (9.7-13.0)
[2021-09-29 01:31] LABS: ACTIVATED PTT 34.3 SECONDS (25.2-36.5)
[2021-09-29 01:43] LABS: EPI CELLS 8 /uL (0-25.1); HYALINE CASTS 6 /uL (0-3.1); PH,URINE 6.5 (5.0-8.0); URINE APPEARANCE CLEAR; URINE BACTERIA >9,000 /uL (0-1359); URINE BILIRUBIN NEGATIVE (NEGATIVE); URINE COLOR YELLOW; URINE GLUCOSE (UA) NEGATIVE (NEGATIVE); URINE KETONE NEGATIVE (NEGATIVE); URINE LEUK ESTERASE 1+ (NEGATIVE); URINE NITRITE NEGATIVE (NEGATIVE); URINE PROTEIN TRACE (NEGATIVE); URINE RBC 9 /uL (0-23.9); URINE UROBILINOGEN 0.2 mg/dL (0.2-1.0); URINE WBC 167 /uL (0-25.8)
[2021-09-29 01:49] LABS: CALCIUM 8.2 mg/dL (8.5-10.1)
[2021-09-29 01:50] LABS: ALBUMIN 1.9 g/dl (3.4-5.0); BLOOD UREA NITROGEN 25.6 mg/dL (7-18); MAGNESIUM 2.1 mg/dL (1.8-2.4)
[2021-09-29 01:53] LABS: CREATININE 1.6 mg/dL (0.55-1.3); PHOSPHOROUS 3.8 mg/dL (2.5-4.9)
[2021-09-29 01:54] LABS: BILIRUBIN,TOTAL 0.9 mg/dL (0.2-1)
[2021-09-29] MEDS ORDERED: PIPERACILLIN/TAZOB 4.5 GM 4.5 GM in DEXTROSE 5%-WATER 100 ML IVPB ONE (02:32)
[2021-09-29] MEDS ORDERED: PIPERACILLIN/TAZOB 4.5 GM 4.5 GM/100 ML BAG IVPB ONE (02:41)
[2021-09-29] MEDS ORDERED: LACTULOSE 20 GM/30 ML UDC (FOR ORAL USE ONLY) PO ONE (02:42)
[2021-09-29] MEDS ORDERED: LACTULOSE 20 GM/30 ML UDC (FOR ORAL USE ONLY) ONE (03:40)
[2021-09-29 07:11] LABS: BASO % 0.8 % (0-2.0); EOS % 4.7 % (0-4.5); HEMATOCRIT 25.5 % (32.4-45.2); HEMOGLOBIN 8.4 GM/dL (10.7-15.3); LYMPH % 17.9 % (8-40); MCH 33.2 pg (25.7-33.7); MEAN CELL VOLUME 100.5 fl (80-96); MONO % 17.3 % (3.8-10.2); NEUT % 59.3 % (42.8-82.8); PLATELET COUNT 126 10^3/uL (134-434); RBC 2.54 M/mm3 (3.60-5.2); RDW 18.4 % (11.6-15.6); WHITE BLOOD COUNT 4.3 K/mm3 (4.0-10.0)
[2021-09-29 07:50] LABS: ALBUMIN 1.8 g/dl (3.4-5.0); CALCIUM 8.2 mg/dL (8.5-10.1)
[2021-09-29 07:53] LABS: CREATININE 1.7 mg/dL (0.55-1.3)
[2021-09-29 07:54] LABS: TOT PROT 6.6 g/dl (6.4-8.2)
[2021-09-29] MEDS ORDERED: LACTULOSE 20 GM/30 ML UDC (FOR ORAL USE ONLY) PO PRN (08:36)
[2021-09-29] MEDS ORDERED: LEVOTHYROXINE NA 50 MCG TABLET (FP) ONE (10:47)
[2021-09-29] MEDS ORDERED: SPIRONOLACTONE 25 MG TABLET ONE (10:47)
[2021-09-29] MEDS ORDERED: PANTOPRAZOLE 40 MG TABLET PO ONE (10:47)
[2021-09-29] MEDS ORDERED: CEFTRIAXONE 1 GM/50 ML BAG ONE (10:48)
[2021-09-29] MEDS: LEVOTHYROXINE NA 50 MCG TABLET (FP) PO SCH (11:03)
[2021-09-29] MEDS: SPIRONOLACTONE 25 MG TABLET PO SCH (11:03)
[2021-09-29] MEDS: PANTOPRAZOLE 40 MG TABLET PO SCH (11:03)
[2021-09-29] MEDS: CEFTRIAXONE 1 GM in DEXTROSE 5%-WATER - 50 ML IVPB SCH (11:03)
[2021-09-29] MEDS: URSODIOL 300 MG CAPSULE PO SCH ×3 (11:48→17:39)
[2021-09-29] MEDS: traZODone HCL 50 MG TABLET (FP) PO SCH (21:54)
[2021-09-29] MEDS: RIFAXIMIN 550 MG TABLET PO SCH (21:55)
[2021-09-29] MEDS ORDERED: LACTULOSE 20 GM/30 ML UDC (FOR ORAL USE ONLY) PO SCH (22:00)
[2021-09-30] MEDS: LEVOTHYROXINE NA 50 MCG TABLET (FP) PO SCH (06:09)
[2021-09-30] MEDS: URSODIOL 300 MG CAPSULE PO SCH ×3 (06:09→17:13)
[2021-09-30] MEDS ORDERED: PNEUMOC 20-VAL CONJ-DIP CRM/PF 0.5 ML SYRINGE IM ONE (09:00)
[2021-09-30] MEDS ORDERED: LACTULOSE 20 GM/30 ML UDC (FOR ORAL USE ONLY) PO SCH (10:00)
[2021-09-30] MEDS ORDERED: DEXTROSE 5%-WATER - 50 ML IVPB ONE (11:02)
[2021-09-30] MEDS ORDERED: cefTRIAXone SODIUM 1 GM VIAL ONE (11:02)
[2021-09-30] MEDS: PANTOPRAZOLE 40 MG TABLET PO SCH (11:06)
[2021-09-30] MEDS: RIFAXIMIN 550 MG TABLET PO SCH ×2 (11:06→21:56)
[2021-09-30] MEDS: SPIRONOLACTONE 25 MG TABLET PO SCH (11:06)
[2021-09-30] MEDS: CEFTRIAXONE 1 GM in DEXTROSE 5%-WATER - 50 ML IVPB SCH (11:07)
[2021-09-30 11:54] LABS: HEMATOCRIT 29.3 % (32.4-45.2); HEMOGLOBIN 9.7 GM/dL (10.7-15.3); MCHC 33.3 g/dl (32.0-36.0); MEAN CELL VOLUME 102.1 fl (80-96); MEAN PLT VOLUME 9.1 fl (7.5-11.1); PLATELET COUNT 132 10^3/uL (134-434); RBC 2.87 M/mm3 (3.60-5.2); RDW 18.4 % (11.6-15.6); WHITE BLOOD COUNT 4.4 K/mm3 (4.0-10.0)
[2021-09-30 12:20] LABS: CALCIUM 8.5 mg/dL (8.5-10.1)
[2021-09-30 12:21] LABS: BLOOD UREA NITROGEN 22.4 mg/dL (7-18)
[2021-09-30 12:23] LABS: CREATININE 1.5 mg/dL (0.55-1.3)
[2021-09-30 12:25] LABS: BILIRUBIN,TOTAL 1.6 mg/dL (0.2-1); TOT PROT 7.4 g/dl (6.4-8.2)
[2021-09-30] MEDS: traZODone HCL 50 MG TABLET (FP) PO SCH (21:56)
[2021-09-30] MEDS: LACTULOSE 20 GM/30 ML UDC (FOR ORAL USE ONLY) PO SCH (21:56)
[2021-09-30] MEDS: ACETAMINOPHEN 325 MG TABLET (FP) PO PRN (22:05)
[2021-10-01] MEDS: URSODIOL 300 MG CAPSULE PO SCH ×3 (06:31→16:31)
[2021-10-01] MEDS: LEVOTHYROXINE NA 50 MCG TABLET (FP) PO SCH (06:31)
[2021-10-01 09:18] LABS: ALBUMIN 1.6 g/dl (3.4-5.0)
[2021-10-01 09:20] LABS: BILIRUBIN,DIRECT 0.6 mg/dL (0.0-0.2)
[2021-10-01 09:22] LABS: BILIRUBIN,TOTAL 0.7 mg/dL (0.2-1); TOT PROT 6.4 g/dl (6.4-8.2)
[2021-10-01] MEDS ORDERED: DEXTROSE 5%-WATER - 50 ML IVPB ONE (09:49)
[2021-10-01] MEDS ORDERED: cefTRIAXone SODIUM 1 GM VIAL ONE (09:49)
[2021-10-01] MEDS: SPIRONOLACTONE 25 MG TABLET PO SCH (09:51)
[2021-10-01] MEDS: PANTOPRAZOLE 40 MG TABLET PO SCH (09:51)
[2021-10-01] MEDS: LACTULOSE 20 GM/30 ML UDC (FOR ORAL USE ONLY) PO SCH ×2 (09:51→22:09)
[2021-10-01] MEDS: RIFAXIMIN 550 MG TABLET PO SCH ×2 (09:51→22:08)
[2021-10-01] MEDS: CEFTRIAXONE 1 GM in DEXTROSE 5%-WATER - 50 ML IVPB SCH (09:51)
[2021-10-01] MEDS ORDERED: ONDANSETRON 4 MG/2 ML VIAL IVPUSH PRN (12:02)
[2021-10-01] MEDS: ACETAMINOPHEN 325 MG TABLET (FP) PO PRN (18:43)
[2021-10-01] MEDS: traZODone HCL 50 MG TABLET (FP) PO SCH (22:08)
[2021-10-02] MEDS: URSODIOL 300 MG CAPSULE PO SCH ×3 (06:06→17:17)
[2021-10-02] MEDS: LEVOTHYROXINE NA 50 MCG TABLET (FP) PO SCH (06:06)
[2021-10-02] MEDS ORDERED: cefTRIAXone SODIUM 1 GM VIAL ONE (09:34)
[2021-10-02] MEDS ORDERED: DEXTROSE 5%-WATER - 50 ML IVPB ONE (09:35)
[2021-10-02] MEDS: PANTOPRAZOLE 40 MG TABLET PO SCH (09:39)
[2021-10-02] MEDS: SPIRONOLACTONE 25 MG TABLET PO SCH (09:39)
[2021-10-02] MEDS: CEFTRIAXONE 1 GM in DEXTROSE 5%-WATER - 50 ML IVPB SCH (09:39)
[2021-10-02] MEDS: RIFAXIMIN 550 MG TABLET PO SCH ×2 (09:39→21:44)
[2021-10-02] MEDS: ACETAMINOPHEN 325 MG TABLET (FP) PO PRN ×2 (09:39→21:44)
[2021-10-02] MEDS: LACTULOSE 20 GM/30 ML UDC (FOR ORAL USE ONLY) PO SCH ×3 (09:39→21:48)
[2021-10-02] MEDS: traZODone HCL 50 MG TABLET (FP) PO SCH (21:44)
[2021-10-03] MEDS: LEVOTHYROXINE NA 50 MCG TABLET (FP) PO SCH (07:10)
[2021-10-03] MEDS: URSODIOL 300 MG CAPSULE PO SCH ×3 (07:10→17:32)
[2021-10-03] MEDS ORDERED: DEXTROSE 5%-WATER - 50 ML IVPB ONE (10:27)
[2021-10-03] MEDS ORDERED: cefTRIAXone SODIUM 1 GM VIAL ONE (10:27)
[2021-10-03] MEDS: SPIRONOLACTONE 25 MG TABLET PO SCH (10:34)
[2021-10-03] MEDS: LACTULOSE 20 GM/30 ML UDC (FOR ORAL USE ONLY) PO SCH ×2 (10:34→21:07)
[2021-10-03] MEDS: PANTOPRAZOLE 40 MG TABLET PO SCH (10:34)
[2021-10-03] MEDS: RIFAXIMIN 550 MG TABLET PO SCH ×2 (10:34→21:07)
[2021-10-03] MEDS: CEFTRIAXONE 1 GM in DEXTROSE 5%-WATER - 50 ML IVPB SCH (10:35)
[2021-10-03 14:28] LABS: HEMATOCRIT 26.6 % (32.4-45.2); HEMOGLOBIN 8.9 GM/dL (10.7-15.3); MCHC 33.5 g/dl (32.0-36.0); MEAN CELL VOLUME 101.5 fl (80-96); MEAN PLT VOLUME 9.4 fl (7.5-11.1); PLATELET COUNT 95 10^3/uL (134-434); RBC 2.62 M/mm3 (3.60-5.2); RDW 17.8 % (11.6-15.6); WHITE BLOOD COUNT 3.9 K/mm3 (4.0-10.0)
[2021-10-03 14:55] LABS: CALCIUM 8.2 mg/dL (8.5-10.1)
[2021-10-03 14:56] LABS: ALBUMIN 1.8 g/dl (3.4-5.0); BLOOD UREA NITROGEN 22.7 mg/dL (7-18)
[2021-10-03 14:59] LABS: CREATININE 1.7 mg/dL (0.55-1.3)
[2021-10-03 15:01] LABS: BILIRUBIN,TOTAL 0.6 mg/dL (0.2-1); TOT PROT 6.9 g/dl (6.4-8.2)
[2021-10-03] MEDS: ACETAMINOPHEN 325 MG TABLET (FP) PO PRN (19:53)
[2021-10-03] MEDS: traZODone HCL 50 MG TABLET (FP) PO SCH (21:07)
[2021-10-04] MEDS: LEVOTHYROXINE NA 50 MCG TABLET (FP) PO SCH (06:21)
[2021-10-04] MEDS: URSODIOL 300 MG CAPSULE PO SCH ×3 (06:21→17:47)
[2021-10-04] MEDS ORDERED: guaiFENesin 200 MG/10 ML 10 ML UNIT-DOSE CUPS PO PRN (09:54)
[2021-10-04] MEDS ORDERED: DEXTROSE 5%-WATER - 50 ML IVPB ONE (10:38)
[2021-10-04] MEDS ORDERED: cefTRIAXone SODIUM 1 GM VIAL ONE (10:38)
[2021-10-04] MEDS: PANTOPRAZOLE 40 MG TABLET PO SCH (10:42)
[2021-10-04] MEDS: SPIRONOLACTONE 25 MG TABLET PO SCH (10:42)
[2021-10-04] MEDS: CEFTRIAXONE 1 GM in DEXTROSE 5%-WATER - 50 ML IVPB SCH (10:42)
[2021-10-04] MEDS: RIFAXIMIN 550 MG TABLET PO SCH ×2 (10:42→21:10)
[2021-10-04] MEDS: LACTULOSE 20 GM/30 ML UDC (FOR ORAL USE ONLY) PO SCH ×3 (10:45→21:20)
[2021-10-04 12:54] LABS: BASO % 0.7 % (0-2.0); EOS % 1.4 % (0-4.5); HEMATOCRIT 26.6 % (32.4-45.2); HEMOGLOBIN 8.8 GM/dL (10.7-15.3); MCH 33.4 pg (25.7-33.7); MCHC 33.1 g/dl (32.0-36.0); MEAN CELL VOLUME 100.9 fl (80-96); MEAN PLT VOLUME 10.5 fl (7.5-11.1); MONO % 17.7 % (3.8-10.2); NEUT % 69.2 % (42.8-82.8); PLATELET COUNT 99 10^3/uL (134-434); RBC 2.63 M/mm3 (3.60-5.2); RDW 17.8 % (11.6-15.6); WHITE BLOOD COUNT 3.7 K/mm3 (4.0-10.0)
[2021-10-04 13:04] LABS: INR 1.52 (0.83-1.09); PROTHROMBIN TIME (PATIENT) 17.6 SEC (9.7-13.0)
[2021-10-04 13:11] LABS: BLOOD UREA NITROGEN 23.4 mg/dL (7-18)
[2021-10-04 13:12] LABS: ALBUMIN 1.7 g/dl (3.4-5.0)
[2021-10-04 13:14] LABS: BILIRUBIN,DIRECT 0.6 mg/dL (0.0-0.2); CREATININE 1.6 mg/dL (0.55-1.3)
[2021-10-04 13:16] LABS: BILIRUBIN,TOTAL 0.8 mg/dL (0.2-1); TOT PROT 6.5 g/dl (6.4-8.2)
[2021-10-04] MEDS: traZODone HCL 50 MG TABLET (FP) PO SCH (21:10)
[2021-10-04] MEDS: BENZOCAINE/MENTHOL (CHLORASEPTIC ) LOZENGE MM PRN (21:11)
[2021-10-04] MEDS: ACETAMINOPHEN 325 MG TABLET (FP) PO PRN (22:15)
[2021-10-04] MEDS ORDERED: SODIUM CHLORIDE 250 ML IV STA (23:30)
[2021-10-05] MEDS ORDERED: SODIUM CHLORIDE 250 ML IV STA (02:32)
[2021-10-05] MEDS: URSODIOL 300 MG CAPSULE PO SCH ×3 (06:40→17:10)
[2021-10-05] MEDS: LEVOTHYROXINE NA 50 MCG TABLET (FP) PO SCH (06:40)
[2021-10-05 08:38] LABS: EOS % 5.2 % (0-4.5); HEMATOCRIT 26.3 % (32.4-45.2); LYMPH % 23.3 % (8-40); MCH 34.7 pg (25.7-33.7); MCHC 34.4 g/dl (32.0-36.0); MEAN CELL VOLUME 101.1 fl (80-96); MEAN PLT VOLUME 10.1 fl (7.5-11.1); MONO % 13.2 % (3.8-10.2); NEUT % 57.3 % (42.8-82.8); PLATELET COUNT 94 10^3/uL (134-434); RDW 17.7 % (11.6-15.6); WHITE BLOOD COUNT 2.9 K/mm3 (4.0-10.0)
[2021-10-05 09:02] LABS: ALBUMIN 1.8 g/dl (3.4-5.0); BLOOD UREA NITROGEN 25.5 mg/dL (7-18); CALCIUM 7.8 mg/dL (8.5-10.1)
[2021-10-05 09:05] LABS: CREATININE 1.7 mg/dL (0.55-1.3)
[2021-10-05 09:06] LABS: BILIRUBIN,DIRECT 0.5 mg/dL (0.0-0.2)
[2021-10-05 09:07] LABS: BILIRUBIN,TOTAL 0.7 mg/dL (0.2-1); TOT PROT 6.6 g/dl (6.4-8.2)
[2021-10-05] MEDS ORDERED: cefTRIAXone SODIUM 1 GM VIAL ONE (09:11)
[2021-10-05] MEDS ORDERED: DEXTROSE 5%-WATER - 50 ML IVPB ONE (09:11)
[2021-10-05] MEDS: CEFTRIAXONE 1 GM in DEXTROSE 5%-WATER - 50 ML IVPB SCH (09:32)
[2021-10-05] MEDS: PANTOPRAZOLE 40 MG TABLET PO SCH (09:33)
[2021-10-05] MEDS: LACTULOSE 20 GM/30 ML UDC (FOR ORAL USE ONLY) PO SCH ×2 (09:33→22:05)
[2021-10-05] MEDS: RIFAXIMIN 550 MG TABLET PO SCH ×2 (09:33→22:05)
[2021-10-05] MEDS: SPIRONOLACTONE 25 MG TABLET PO SCH (09:33)
[2021-10-05] MEDS: BENZOCAINE/MENTHOL (CHLORASEPTIC ) LOZENGE MM PRN (09:40)
[2021-10-05] MEDS ORDERED: ALPRAZolam 0.25 MG TABLET PO ONE (19:49)
[2021-10-05] MEDS: traZODone HCL 50 MG TABLET (FP) PO SCH (22:05)
[2021-10-06] MEDS: LEVOTHYROXINE NA 50 MCG TABLET (FP) PO SCH (06:47)
[2021-10-06] MEDS: URSODIOL 300 MG CAPSULE PO SCH ×2 (07:33→12:07)
[2021-10-06] MEDS ORDERED: DEXTROSE 5%-WATER - 50 ML IVPB ONE (09:33)
[2021-10-06] MEDS ORDERED: cefTRIAXone SODIUM 1 GM VIAL ONE (09:33)
[2021-10-06] MEDS: LACTULOSE 20 GM/30 ML UDC (FOR ORAL USE ONLY) PO SCH (09:49)
[2021-10-06] MEDS: CEFTRIAXONE 1 GM in DEXTROSE 5%-WATER - 50 ML IVPB SCH (09:49)
[2021-10-06] MEDS: PANTOPRAZOLE 40 MG TABLET PO SCH (09:50)
[2021-10-06] MEDS: RIFAXIMIN 550 MG TABLET PO SCH (09:50)
[2021-10-06] MEDS: SPIRONOLACTONE 25 MG TABLET PO SCH (09:50)
[2021-10-06 13:24] VITALS: BMI 21.3
[2021-10-06 15:40] VITALS: BP 91/67; PULSE 15; TEMP 97.6
== END 2021-10-06 17:55 | disposition short-term general hospital (02) | DRG 444 ==
LOC: JER 23:45 → JERBED 09-29 02:31 → J7W 09-29 22:58 → J6S 10-03 18:07
PROVIDERS: ADMIT Internal Medicine; ATTEND Internal Medicine
DX: K80.50 Calculus of bile duct without cholangitis or cholecystitis without obstruction (principal); K72.00 Acute and subacute hepatic failure without coma; G93.41 Metabolic encephalopathy; U07.1 COVID-19; N39.0 Urinary tract infection, site not specified; E72.20 Disorder of urea cycle metabolism, unspecified; K74.3 Primary biliary cirrhosis; E78.5 Hyperlipidemia, unspecified; D64.9 Anemia, unspecified; E03.9 Hypothyroidism, unspecified; M35.3 Polymyalgia rheumatica
CPT/HCPCS: 0241U-QW; 36415; 70450-TC; 71045-TC-FY; 74176-TC; 74181-TC; 74250-TC-FY; 76705-TC; 80048; 80053; 80076; 81003; 82140; 82962; 83605; 83690; 83735; 84100; 84443; 84484; 85025; 85027; 85610; 85730; 86140; 86850; 86900; 86901; 87045; 87046; 87086; 87177; 87186; 87205; 87209; 87324; 87449; 93005; 93010; 97116-GP; 97162-GP; 99285-25; C9803-CS; U0003; U0005

== ENCOUNTER 2021-12-05 16:43 | Emergency (ER) | payer OTHER ==
[2021-12-05 17:14] VITALS: BP 92/57; PULSE 96; RESP 18; TEMP 99; BMI 23.3
[2021-12-05] MEDS ORDERED: morphine CARPU-JECT 2 MG/1 ML DISP.SYRIN IM ONE (19:07)
[2021-12-05] MEDS ORDERED: HYDROmorphone HCL 2 MG TABLET PO ONE (21:47)
== END 2021-12-05 22:05 | disposition home or self-care (01) ==
LOC: JERFT 16:43 → JER 16:43 → JERFT 22:05
PROC: 3E023NZ Introduction of Analgesics, Hypnotics, Sedatives into Muscle, Percutaneous Approach (ICD-10-PCS; principal; 2021-12-05)
DX: S42.211A Unspecified displaced fracture of surgical neck of right humerus, initial encounter for closed fracture (principal)
CPT/HCPCS: 70450-TC; 72125-TC; 73000-TC-RT-FY; 73030-TC-RT-FY; 99285-25

== ENCOUNTER 2022-01-10 09:41 | Inpatient (IN) | payer OTHER ==
[2022-01-10] MEDS: ALBUTEROL SO4 2.5/IPRATROPIUM 0.5 INH SOL 3 ML VIAL.NEB. NEB SCH ×4 (10:00→10:45)
[2022-01-10] MEDS ORDERED: ADENOSINE 6 MG/2 ML VIAL IVPUSH ONE ×3 (10:33)
[2022-01-10] MEDS ORDERED: ALBUTEROL SO4 2.5/IPRATROPIUM 0.5 INH SOL 3 ML VIAL.NEB. NEB ONE (10:47)
[2022-01-10 11:43] LABS: VENOUS BASE EXCESS -10.6 mmol/L (-2-2); VENOUS O2 SATURATION 95.6 % (70-80); VENOUS PCO2 47.3 mmHg (38-52)
[2022-01-10 11:46] LABS: VENOUS PH 7.181 (7.310-7.410)
[2022-01-10 11:49] LABS: BASO % 0.4 % (0-2.0); EOS % 2.2 % (0-4.5); HEMATOCRIT 27.7 % (32.4-45.2); LYMPH % 3.8 % (8-40); MCH 35.4 pg (25.7-33.7); MCHC 32.7 g/dl (32.0-36.0); MEAN CELL VOLUME 108.5 fl (80-96); MEAN PLT VOLUME 9.6 fl (7.5-11.1); MONO % 8.8 % (3.8-10.2); NEUT % 84.8 % (42.8-82.8); PLATELET COUNT 234 10^3/uL (134-434); RBC 2.55 M/mm3 (3.60-5.2); RDW 18.3 % (11.6-15.6); WHITE BLOOD COUNT 17.7 K/mm3 (4.0-10.0)
[2022-01-10 11:56] LABS: INR 1.34 (0.83-1.09); PROTHROMBIN TIME (PATIENT) 15.4 SEC (9.7-13.0)
[2022-01-10 11:58] LABS: ACTIVATED PTT 33.5 SECONDS (25.2-36.5)
[2022-01-10] MEDS ORDERED: VANCOMYCIN 1 GM in D5W (PRE-DOCKED) 1,000 MG/250 ML IVPB ONE (12:06)
[2022-01-10] MEDS ORDERED: PIPERACILLIN/TAZOB 3.375 GM 3.375 GM in DEXTROSE 5%-WATER - 50 ML IVPB ONE (12:06)
[2022-01-10 12:11] LABS: ALBUMIN 1.8 g/dl (3.4-5.0); BLOOD UREA NITROGEN 32.5 mg/dL (7-18); CALCIUM 7.9 mg/dL (8.5-10.1)
[2022-01-10 12:16] LABS: TOT PROT 8.5 g/dl (6.4-8.2)
[2022-01-10] MEDS ORDERED: PIPERACILLIN/TAZOB 3.375 GM 3.375 GM/50 ML BAG IVPB ONE (12:17)
[2022-01-10] MEDS ORDERED: VANCOMYCIN/WATER FOR INJ (PEG) 1,000 MG/200 ML BAG IVPB ONE (12:17)
[2022-01-10 12:44] LABS: ANISOCYTOSIS 2+; MACROCYTOSIS 2+
[2022-01-10 13:46] LABS: ARTERIAL BLD GAS O2 SATURATION 99.1 % (95-98); ARTERIAL BLOOD GAS BASE EXCESS -11.8 mmol/L (-2-2); ARTERIAL BLOOD GAS PO2 201.9 mmHg (80-100)
[2022-01-10 13:54] LABS: ALLENS TEST POSITIVE
[2022-01-10 13:56] LABS: ARTERIAL BLOOD GAS pH 7.187 (7.350-7.450)
[2022-01-10] MEDS ORDERED: SODIUM CHLORIDE 1,000 ML IV STA (14:07)
[2022-01-10] MEDS ORDERED: LACTATED RINGERS SOLUTION 1000 ML INFUS.BAG IV ONE (14:15)
[2022-01-10] MEDS ORDERED: PIPERACILLIN/TAZOB 3.375 GM 3.375 GM in DEXTROSE 5%-WATER - 50 ML IVPB SCH (15:00)
[2022-01-10] MEDS ORDERED: HEPARIN NA (PORCINE) 5,000 UNITS/ML 1ML VIAL ONE (15:07)
[2022-01-10] MEDS: HEPARIN NA (PORCINE) 5,000 UNITS/ML 1ML VIAL SQ SCH ×2 (15:10→23:07)
[2022-01-10] MEDS: SODIUM CHLORIDE 1,000 ML IV SCH (17:01)
[2022-01-10] MEDS ORDERED: PIPERACILLIN/TAZOB 2.25 GM 2.25 GM/50 ML BAG IVPB ONE (17:02)
[2022-01-10 17:58] LABS: COCAINE, UR NEGATIVE (NEGATIVE); METHADONE, UR NEGATIVE (NEGATIVE); URINE AMPHETAMINES NEGATIVE (NEGATIVE)
[2022-01-10 17:59] LABS: PHENCYCLIDINE,URINE NEGATIVE (NEGATIVE)
[2022-01-10 18:03] LABS: EPI CELLS 4 /uL (0-25.1); HYALINE CASTS 19 /uL (0-3.1); PH,URINE 5.5 (5.0-8.0); URINE APPEARANCE TURBID; URINE BACTERIA 3400 /uL (0-1359); URINE BILIRUBIN NEGATIVE (NEGATIVE); URINE COLOR YELLOW; URINE GLUCOSE (UA) NEGATIVE (NEGATIVE); URINE KETONE NEGATIVE (NEGATIVE); URINE LEUK ESTERASE 3+ (NEGATIVE); URINE NITRITE NEGATIVE (NEGATIVE); URINE PROTEIN 1+ (NEGATIVE); URINE UROBILINOGEN 0.2 mg/dL (0.2-1.0); URINE WBC 22721 /uL (0-25.8)
[2022-01-10 18:05] LABS: URINE RBC 359 /uL (0-23.9)
[2022-01-10 18:17] LABS: OPIATES, URI POSITIVE (NEGATIVE); URINE BARBITURATES NEGATIVE (NEGATIVE); URINE BENZODIAZEPINES NEGATIVE (NEGATIVE)
[2022-01-10] MEDS: PIPERACILLIN/TAZOB 2.25 GM 2.25 GM in DEXTROSE 5%-WATER - 50 ML IVPB SCH (19:01)
[2022-01-10 19:41] LABS: BLOOD UREA NITROGEN 34.2 mg/dL (7-18); CALCIUM 7.9 mg/dL (8.5-10.1)
[2022-01-10 19:46] LABS: LACTIC ACID 3.6 mmol/L (0.4-2.0)
[2022-01-10] MEDS ORDERED: PATIENT'S OWN MEDICATION (NON-FORMULARY) (Lactulose [Lactulose] 10 GM/15 ML Solution) PO SCH (22:00)
[2022-01-11] MEDS: PIPERACILLIN/TAZOB 2.25 GM 2.25 GM in DEXTROSE 5%-WATER - 50 ML IVPB SCH ×6 (00:58→19:31)
[2022-01-11] MEDS: SODIUM CHLORIDE 1,000 ML IV SCH ×2 (05:46→09:39)
[2022-01-11] MEDS: LEVOTHYROXINE NA 50 MCG TABLET (FP) PO SCH (06:05)
[2022-01-11] MEDS: HEPARIN NA (PORCINE) 5,000 UNITS/ML 1ML VIAL SQ SCH (06:05)
[2022-01-11 09:05] LABS: ARTERIAL BLD GAS O2 SATURATION 97.1 % (95-98); ARTERIAL BLOOD GAS BASE EXCESS -8.2 mmol/L (-2-2); ARTERIAL BLOOD GAS PO2 101.1 mmHg (80-100); ARTERIAL BLOOD GAS pH 7.296 (7.350-7.450)
[2022-01-11 09:06] LABS: ALLENS TEST POSITIVE
[2022-01-11 09:14] LABS: BASO % 0.1 % (0-2.0); EOS % 0.1 % (0-4.5); HEMATOCRIT 21.1 % (32.4-45.2); HEMOGLOBIN 7.2 GM/dL (10.7-15.3); LYMPH % 4.4 % (8-40); MCH 36.3 pg (25.7-33.7); MEAN CELL VOLUME 106.6 fl (80-96); MEAN PLT VOLUME 9.1 fl (7.5-11.1); MONO % 8.4 % (3.8-10.2); PLATELET COUNT 123 10^3/uL (134-434); RBC 1.98 M/mm3 (3.60-5.2); RDW 16.9 % (11.6-15.6); WHITE BLOOD COUNT 12.5 K/mm3 (4.0-10.0)
[2022-01-11] MEDS: methylPREDNISolone NA SUCC 40 MG/1 ML VIAL IVPUSH SCH ×2 (09:40→17:01)
[2022-01-11] MEDS: ENOXAPARIN NA (PORCINE) 40 MG/0.4 ML DISP.SYRIN SQ SCH (09:42)
[2022-01-11] MEDS: PANTOPRAZOLE SOD 40 MG SUSPENSION PACKET PO SCH (09:42)
[2022-01-11 09:44] LABS: CALCIUM 7.4 mg/dL (8.5-10.1)
[2022-01-11 09:45] LABS: ALBUMIN 1.5 g/dl (3.4-5.0); BLOOD UREA NITROGEN 36.7 mg/dL (7-18); MAGNESIUM 2.3 mg/dL (1.8-2.4)
[2022-01-11 09:47] LABS: PHOSPHOROUS 5.5 mg/dL (2.5-4.9)
[2022-01-11 09:48] LABS: CREATININE 1.7 mg/dL (0.55-1.3)
[2022-01-11 09:49] LABS: BILIRUBIN,TOTAL 0.7 mg/dL (0.2-1); TOT PROT 6.9 g/dl (6.4-8.2)
[2022-01-11] MEDS ORDERED: PNEUMOC 20-VAL CONJ-DIP CRM/PF 0.5 ML SYRINGE IM ONE (10:00)
[2022-01-11] MEDS ORDERED: NICOTINE 7 MG/24 HOURS TOPICAL PATCH TD SCH (10:00)
[2022-01-11] MEDS: ALBUTEROL SO4 0.083% IH SOL 2.5 MG/3 ML VIAL.NEB. NEB PRN ×3 (12:00→20:30)
[2022-01-11] MEDS: LACTULOSE 20 GM/30 ML UDC (FOR ORAL USE ONLY) PO PRN (18:32)
[2022-01-12] MEDS: PIPERACILLIN/TAZOB 2.25 GM 2.25 GM in DEXTROSE 5%-WATER - 50 ML IVPB SCH ×4 (00:55→17:16)
[2022-01-12] MEDS: methylPREDNISolone NA SUCC 40 MG/1 ML VIAL IVPUSH SCH ×4 (00:58→17:12)
[2022-01-12] MEDS: LEVOTHYROXINE NA 50 MCG TABLET (FP) PO SCH (06:24)
[2022-01-12] MEDS: SODIUM CHLORIDE 1,000 ML IV SCH ×2 (06:25→09:25)
[2022-01-12] MEDS: ALBUTEROL SO4 0.083% IH SOL 2.5 MG/3 ML VIAL.NEB. NEB PRN ×2 (07:37→14:20)
[2022-01-12 08:19] LABS: HEMATOCRIT 19.6 % (32.4-45.2); MCH 35.3 pg (25.7-33.7); MCHC 32.8 g/dl (32.0-36.0); MEAN CELL VOLUME 107.6 fl (80-96); MEAN PLT VOLUME 9.6 fl (7.5-11.1); PLATELET COUNT 115 10^3/uL (134-434); RBC 1.83 M/mm3 (3.60-5.2); RDW 17.4 % (11.6-15.6); WHITE BLOOD COUNT 5.8 K/mm3 (4.0-10.0)
[2022-01-12 08:25] LABS: HEMOGLOBIN 6.4 GM/dL (10.7-15.3)
[2022-01-12 08:39] LABS: ALBUMIN 1.4 g/dl (3.4-5.0); BLOOD UREA NITROGEN 44.5 mg/dL (7-18); CALCIUM 7.8 mg/dL (8.5-10.1)
[2022-01-12 08:42] LABS: CREATININE 1.7 mg/dL (0.55-1.3)
[2022-01-12 08:44] LABS: BILIRUBIN,TOTAL 0.6 mg/dL (0.2-1); TOT PROT 6.3 g/dl (6.4-8.2)
[2022-01-12] MEDS: ENOXAPARIN NA (PORCINE) 40 MG/0.4 ML DISP.SYRIN SQ SCH (09:24)
[2022-01-12] MEDS: PANTOPRAZOLE SOD 40 MG SUSPENSION PACKET PO SCH (09:25)
[2022-01-12] MEDS ORDERED: FUROSEMIDE 40 MG/4 ML INJECTABLE VIAL IVPUSH ONE (11:33)
[2022-01-12 11:45] VITALS: BMI 27.4
[2022-01-12] MEDS ORDERED: ACETAMINOPHEN 325 MG TABLET (FP) PO PRN (15:27)
[2022-01-12] MEDS: SODIUM CHLORIDE 0.45% 1,000 ML IV SCH (15:44)
[2022-01-12] MEDS: ACETAMINOPHEN 325 MG TABLET (FP) PO PRN (16:39)
[2022-01-13] MEDS: PIPERACILLIN/TAZOB 2.25 GM 2.25 GM in DEXTROSE 5%-WATER - 50 ML IVPB SCH ×3 (01:16→17:03)
[2022-01-13] MEDS: methylPREDNISolone NA SUCC 40 MG/1 ML VIAL IVPUSH SCH ×3 (01:16→17:03)
[2022-01-13] MEDS: LEVOTHYROXINE NA 50 MCG TABLET (FP) PO SCH (06:08)
[2022-01-13] MEDS: ACETAMINOPHEN 325 MG TABLET (FP) PO PRN ×3 (06:23→21:04)
[2022-01-13] MEDS: LACTULOSE 20 GM/30 ML UDC (FOR ORAL USE ONLY) PO PRN (06:39)
[2022-01-13] MEDS: SODIUM CHLORIDE 0.45% 1,000 ML IV SCH ×2 (08:53→19:17)
[2022-01-13] MEDS: ENOXAPARIN NA (PORCINE) 40 MG/0.4 ML DISP.SYRIN SQ SCH (09:42)
[2022-01-13] MEDS: PANTOPRAZOLE SOD 40 MG SUSPENSION PACKET PO SCH (09:43)
[2022-01-13 13:10] LABS: HEMATOCRIT 30.4 % (32.4-45.2); HEMOGLOBIN 10.2 GM/dL (10.7-15.3); MCH 34.4 pg (25.7-33.7); MCHC 33.6 g/dl (32.0-36.0); MEAN CELL VOLUME 102.4 fl (80-96); MEAN PLT VOLUME 9.4 fl (7.5-11.1); PLATELET COUNT 140 10^3/uL (134-434); RBC 2.97 M/mm3 (3.60-5.2); RDW 18.5 % (11.6-15.6); WHITE BLOOD COUNT 8.8 K/mm3 (4.0-10.0)
[2022-01-13 13:37] LABS: ALBUMIN 1.6 g/dl (3.4-5.0); BLOOD UREA NITROGEN 58.5 mg/dL (7-18); CALCIUM 7.6 mg/dL (8.5-10.1)
[2022-01-13 13:40] LABS: CREATININE 2.1 mg/dL (0.55-1.3)
[2022-01-13] MEDS ORDERED: POTASSIUM CHLORIDE ORAL LIQUID 20 MEQ/15 ML PO ONE (15:23)
[2022-01-13] MEDS ORDERED: DEXTROSE 5%-WATER - 1,000 ML with POTASSIUM CHLORIDE 20 MEQ IV SCH (15:30)
[2022-01-13] MEDS: POTASSIUM CHLORIDE 20 MEQ in DEXTROSE 5%-WATER - 1,000 ML IV SCH (17:05)
[2022-01-14] MEDS: PIPERACILLIN/TAZOB 2.25 GM 2.25 GM in DEXTROSE 5%-WATER - 50 ML IVPB SCH ×3 (01:30→17:27)
[2022-01-14] MEDS: methylPREDNISolone NA SUCC 40 MG/1 ML VIAL IVPUSH SCH ×3 (01:30→17:27)
[2022-01-14] MEDS: LEVOTHYROXINE NA 50 MCG TABLET (FP) PO SCH (06:11)
[2022-01-14] MEDS: ACETAMINOPHEN 325 MG TABLET (FP) PO PRN ×2 (06:11→15:22)
[2022-01-14] MEDS: POTASSIUM CHLORIDE 20 MEQ in DEXTROSE 5%-WATER - 1,000 ML IV SCH (09:37)
[2022-01-14] MEDS: PANTOPRAZOLE SOD 40 MG SUSPENSION PACKET PO SCH ×2 (09:37→21:33)
[2022-01-14] MEDS: ENOXAPARIN NA (PORCINE) 40 MG/0.4 ML DISP.SYRIN SQ SCH (09:37)
[2022-01-14] MEDS: ALBUMIN HUMAN 25% 100 ML VIAL IV SCH ×4 (12:37→16:01)
[2022-01-14 13:51] LABS: HEMATOCRIT 30.8 % (32.4-45.2); HEMOGLOBIN 10.5 GM/dL (10.7-15.3); MCH 35.2 pg (25.7-33.7); MCHC 33.9 g/dl (32.0-36.0); MEAN CELL VOLUME 103.8 fl (80-96); MEAN PLT VOLUME 8.6 fl (7.5-11.1); PLATELET COUNT 126 10^3/uL (134-434); RBC 2.97 M/mm3 (3.60-5.2); RDW 19.2 % (11.6-15.6); WHITE BLOOD COUNT 8.7 K/mm3 (4.0-10.0)
[2022-01-14 14:15] LABS: BLOOD UREA NITROGEN 54.5 mg/dL (7-18); CALCIUM 7.6 mg/dL (8.5-10.1); MAGNESIUM 2.4 mg/dL (1.8-2.4)
[2022-01-14 14:16] LABS: ALBUMIN 1.7 g/dl (3.4-5.0)
[2022-01-14 14:20] LABS: BILIRUBIN,TOTAL 0.8 mg/dL (0.2-1); CREATININE 2.3 mg/dL (0.55-1.3)
[2022-01-15] MEDS: PIPERACILLIN/TAZOB 2.25 GM 2.25 GM in DEXTROSE 5%-WATER - 50 ML IVPB SCH ×3 (01:34→17:57)
[2022-01-15] MEDS: methylPREDNISolone NA SUCC 40 MG/1 ML VIAL IVPUSH SCH ×3 (01:36→18:15)
[2022-01-15] MEDS: POTASSIUM CHLORIDE 20 MEQ in DEXTROSE 5%-WATER - 1,000 ML IV SCH ×3 (01:39→21:12)
[2022-01-15] MEDS: LEVOTHYROXINE NA 50 MCG TABLET (FP) PO SCH (06:20)
[2022-01-15] MEDS: ENOXAPARIN NA (PORCINE) 40 MG/0.4 ML DISP.SYRIN SQ SCH (11:19)
[2022-01-15] MEDS: PANTOPRAZOLE SOD 40 MG SUSPENSION PACKET PO SCH ×2 (11:20→21:12)
[2022-01-15] MEDS ORDERED: ACETAMINOPHEN 325 MG TABLET (FP) PO PRN (11:54)
[2022-01-15 14:01] LABS: BASO % 0.1 % (0-2.0); HEMATOCRIT 30.8 % (32.4-45.2); HEMOGLOBIN 10.5 GM/dL (10.7-15.3); LYMPH % 3.4 % (8-40); MCH 35.1 pg (25.7-33.7); MCHC 34.1 g/dl (32.0-36.0); MEAN CELL VOLUME 103.1 fl (80-96); MEAN PLT VOLUME 7.9 fl (7.5-11.1); MONO % 7.3 % (3.8-10.2); NEUT % 89.2 % (42.8-82.8); PLATELET COUNT 114 10^3/uL (134-434); RBC 2.99 M/mm3 (3.60-5.2); RDW 18.5 % (11.6-15.6); WHITE BLOOD COUNT 9.7 K/mm3 (4.0-10.0)
[2022-01-15 14:32] LABS: BLOOD UREA NITROGEN 47.4 mg/dL (7-18)
[2022-01-15 14:35] LABS: CREATININE 2.1 mg/dL (0.55-1.3)
[2022-01-15 14:36] LABS: TOT PROT 6.8 g/dl (6.4-8.2)
[2022-01-15] MEDS: LINEZOLID 600 MG TABLET (RESTRICTED TO ID) PO SCH ×2 (15:57→21:11)
[2022-01-15] MEDS: oxyCODONE HCL 5 MG TABLET PO PRN ×2 (15:57→21:11)
[2022-01-16] MEDS: PIPERACILLIN/TAZOB 2.25 GM 2.25 GM in DEXTROSE 5%-WATER - 50 ML IVPB SCH ×3 (01:12→19:35)
[2022-01-16] MEDS: methylPREDNISolone NA SUCC 40 MG/1 ML VIAL IVPUSH SCH (01:12)
[2022-01-16] MEDS: POTASSIUM CHLORIDE 20 MEQ in DEXTROSE 5%-WATER - 1,000 ML IV SCH (05:58)
[2022-01-16] MEDS: oxyCODONE HCL 5 MG TABLET PO PRN ×3 (05:59→19:31)
[2022-01-16] MEDS: LEVOTHYROXINE NA 50 MCG TABLET (FP) PO SCH (05:59)
[2022-01-16] MEDS: predniSONE 20 MG TABLET (UD) PO SCH (11:19)
[2022-01-16] MEDS: LINEZOLID 600 MG TABLET (RESTRICTED TO ID) PO SCH ×2 (11:19→22:29)
[2022-01-16] MEDS: ENOXAPARIN NA (PORCINE) 40 MG/0.4 ML DISP.SYRIN SQ SCH (11:19)
[2022-01-16] MEDS: PANTOPRAZOLE SOD 40 MG SUSPENSION PACKET PO SCH ×2 (11:19→22:28)
[2022-01-16] MEDS: ACETAMINOPHEN 325 MG TABLET (FP) PO PRN (17:24)
[2022-01-17] MEDS: PIPERACILLIN/TAZOB 2.25 GM 2.25 GM in DEXTROSE 5%-WATER - 50 ML IVPB SCH ×3 (03:47→17:00)
[2022-01-17] MEDS: oxyCODONE HCL 5 MG TABLET PO PRN ×3 (03:57→19:38)
[2022-01-17] MEDS: LEVOTHYROXINE NA 50 MCG TABLET (FP) PO SCH (06:37)
[2022-01-17 09:22] LABS: HEMATOCRIT 32.9 % (32.4-45.2); HEMOGLOBIN 11.1 GM/dL (10.7-15.3); MCH 33.8 pg (25.7-33.7); MCHC 33.7 g/dl (32.0-36.0); MEAN CELL VOLUME 100.6 fl (80-96); MEAN PLT VOLUME 8.7 fl (7.5-11.1); PLATELET COUNT 126 10^3/uL (134-434); RBC 3.27 M/mm3 (3.60-5.2); RDW 18.2 % (11.6-15.6); WHITE BLOOD COUNT 11.4 K/mm3 (4.0-10.0)
[2022-01-17 09:50] LABS: ALBUMIN 1.9 g/dl (3.4-5.0); BLOOD UREA NITROGEN 36.6 mg/dL (7-18)
[2022-01-17 09:53] LABS: CREATININE 1.6 mg/dL (0.55-1.3)
[2022-01-17 09:55] LABS: BILIRUBIN,TOTAL 1.1 mg/dL (0.2-1); TOT PROT 6.6 g/dl (6.4-8.2)
[2022-01-17] MEDS: PANTOPRAZOLE SOD 40 MG SUSPENSION PACKET PO SCH ×2 (11:26→21:22)
[2022-01-17] MEDS: ENOXAPARIN NA (PORCINE) 40 MG/0.4 ML DISP.SYRIN SQ SCH (11:26)
[2022-01-17] MEDS: predniSONE 20 MG TABLET (UD) PO SCH (11:27)
[2022-01-17] MEDS: LINEZOLID 600 MG TABLET (RESTRICTED TO ID) PO SCH ×2 (11:27→21:23)
[2022-01-17] MEDS: POTASSIUM CHLORIDE 20 MEQ in DEXTROSE 5%-WATER - 1,000 ML IV SCH (17:52)
[2022-01-18] MEDS: PIPERACILLIN/TAZOB 2.25 GM 2.25 GM in DEXTROSE 5%-WATER - 50 ML IVPB SCH (02:01)
[2022-01-18] MEDS: oxyCODONE HCL 5 MG TABLET PO PRN ×2 (02:01→09:13)
[2022-01-18] MEDS: LEVOTHYROXINE NA 50 MCG TABLET (FP) PO SCH (06:26)
[2022-01-18] MEDS: ENOXAPARIN NA (PORCINE) 40 MG/0.4 ML DISP.SYRIN SQ SCH (09:13)
[2022-01-18] MEDS: LINEZOLID 600 MG TABLET (RESTRICTED TO ID) PO SCH ×2 (09:13→22:10)
[2022-01-18] MEDS: PANTOPRAZOLE SOD 40 MG SUSPENSION PACKET PO SCH ×2 (09:13→22:10)
[2022-01-18] MEDS ORDERED: predniSONE 10 MG TABLET (UD) PO SCH (10:00)
[2022-01-18] MEDS: HYDROmorphone HCl 2 MG/ML VIAL IVPB PRN (11:39)
[2022-01-18 12:36] LABS: INR 1.54 (0.83-1.09); PROTHROMBIN TIME (PATIENT) 17.8 SEC (9.7-13.0)
[2022-01-18 12:38] LABS: ACTIVATED PTT 34.6 SECONDS (25.2-36.5)
[2022-01-18 14:46] LABS: HEMATOCRIT 33.2 % (32.4-45.2); HEMOGLOBIN 11.1 GM/dL (10.7-15.3); MCH 34.3 pg (25.7-33.7); MCHC 33.3 g/dl (32.0-36.0); MEAN PLT VOLUME 8.6 fl (7.5-11.1); PLATELET COUNT 113 10^3/uL (134-434); RBC 3.23 M/mm3 (3.60-5.2); RDW 18.9 % (11.6-15.6); WHITE BLOOD COUNT 13.6 K/mm3 (4.0-10.0)
[2022-01-18 15:07] LABS: ALBUMIN 1.8 g/dl (3.4-5.0); BLOOD UREA NITROGEN 33.9 mg/dL (7-18); CALCIUM 8.2 mg/dL (8.5-10.1)
[2022-01-18 15:10] LABS: CREATININE 1.6 mg/dL (0.55-1.3)
[2022-01-18 15:12] LABS: BILIRUBIN,TOTAL 1.6 mg/dL (0.2-1); TOT PROT 6.5 g/dl (6.4-8.2)
[2022-01-18] MEDS: AMOX TR/POT CLAV 875MG/125MG TABLETS (FP) PO SCH (16:45)
[2022-01-19] MEDS: HYDROmorphone HCl 2 MG/ML VIAL IVPB PRN (03:19)
[2022-01-19] MEDS: LEVOTHYROXINE NA 50 MCG TABLET (FP) PO SCH (06:29)
[2022-01-19] MEDS ORDERED: morphine SULFATE IMMEDIATE RELEASE 30 MG TAB PO PRN (08:06)
[2022-01-19] MEDS ORDERED: ACETAMINOPHEN 325 MG TABLET (FP) PO PRN (08:08)
[2022-01-19] MEDS: AMOX TR/POT CLAV 875MG/125MG TABLETS (FP) PO SCH ×2 (08:46→17:03)
[2022-01-19 09:30] LABS: HEMATOCRIT 34.7 % (32.4-45.2); HEMOGLOBIN 11.1 GM/dL (10.7-15.3); MCH 33.4 pg (25.7-33.7); MCHC 32.1 g/dl (32.0-36.0); MEAN PLT VOLUME 8.3 fl (7.5-11.1); PLATELET COUNT 117 10^3/uL (134-434); RBC 3.34 M/mm3 (3.60-5.2); RDW 19.2 % (11.6-15.6); WHITE BLOOD COUNT 14.4 K/mm3 (4.0-10.0)
[2022-01-19] MEDS: ENOXAPARIN NA (PORCINE) 40 MG/0.4 ML DISP.SYRIN SQ SCH (09:32)
[2022-01-19] MEDS: LINEZOLID 600 MG TABLET (RESTRICTED TO ID) PO SCH ×2 (09:32→22:56)
[2022-01-19] MEDS: PANTOPRAZOLE SOD 40 MG SUSPENSION PACKET PO SCH (09:32)
[2022-01-19] MEDS: morphine SULFATE IMMEDIATE RELEASE 30 MG TAB PO PRN (09:38)
[2022-01-19] MEDS ORDERED: predniSONE 20 MG TABLET (UD) PO SCH (10:00)
[2022-01-19 10:15] LABS: ALBUMIN 1.8 g/dl (3.4-5.0); CALCIUM 8.3 mg/dL (8.5-10.1)
[2022-01-19 10:18] LABS: CREATININE 1.4 mg/dL (0.55-1.3)
[2022-01-19 10:19] LABS: TOT PROT 6.3 g/dl (6.4-8.2)
[2022-01-19 10:23] LABS: BILIRUBIN,TOTAL 1.4 mg/dL (0.2-1)
[2022-01-19 22:17] VITALS: RESP 20
[2022-01-20] MEDS: morphine SULFATE IMMEDIATE RELEASE 30 MG TAB PO PRN (03:32)
[2022-01-20] MEDS: LEVOTHYROXINE NA 50 MCG TABLET (FP) PO SCH (06:07)
[2022-01-20] MEDS ORDERED: predniSONE 10 MG TABLET (UD) PO SCH (10:00)
[2022-01-20] MEDS: PANTOPRAZOLE SOD 40 MG SUSPENSION PACKET PO SCH (11:10)
[2022-01-20] MEDS: LINEZOLID 600 MG TABLET (RESTRICTED TO ID) PO SCH (11:10)
[2022-01-20] MEDS: AMOX TR/POT CLAV 875MG/125MG TABLETS (FP) PO SCH ×2 (11:10→18:45)
[2022-01-20] MEDS: ENOXAPARIN NA (PORCINE) 40 MG/0.4 ML DISP.SYRIN SQ SCH (11:10)
[2022-01-20 15:43] VITALS: BP 122/60; PULSE 70; TEMP 98.6
== END 2022-01-20 17:40 | DRG 193 ==
LOC: JER 09:41 → JERBED 13:51 → J7W 17:46
PROVIDERS: ADMIT Internal Medicine; ATTEND Internal Medicine
PROC: 30233N1 Transfusion of Nonautologous Red Blood Cells into Peripheral Vein, Percutaneous Approach (ICD-10-PCS; principal; 2022-01-12)
DX: J18.9 Pneumonia, unspecified organism (principal); G93.41 Metabolic encephalopathy; J96.01 Acute respiratory failure with hypoxia; C95.10 Chronic leukemia of unspecified cell type not having achieved remission; E87.2 Acidosis; D69.3 Immune thrombocytopenic purpura; D47.1 Chronic myeloproliferative disease; N39.0 Urinary tract infection, site not specified; N17.9 Acute kidney failure, unspecified; E87.0 Hyperosmolality and hypernatremia; R18.8 Other ascites; E87.6 Hypokalemia; E03.9 Hypothyroidism, unspecified; R41.82 Altered mental status, unspecified; M54.50 Low back pain, unspecified; K21.9 Gastro-esophageal reflux disease without esophagitis; K74.60 Unspecified cirrhosis of liver; M35.3 Polymyalgia rheumatica; E88.09 Other disorders of plasma-protein metabolism, not elsewhere classified; M81.0 Age-related osteoporosis without current pathological fracture; N18.9 Chronic kidney disease, unspecified; D64.9 Anemia, unspecified; K74.3 Primary biliary cirrhosis; E78.5 Hyperlipidemia, unspecified; K42.9 Umbilical hernia without obstruction or gangrene; Z86.718 Personal history of other venous thrombosis and embolism; Z96.642 Presence of left artificial hip joint
CPT/HCPCS: 0241U-QW; 36415; 36430; 36600; 71045-TC-FY; 71250-TC; 73030-TC-RT-FY; 73060-TC-RT-FY; 74018-TC-FY; 74176-TC; 80048; 80053; 80307; 81003; 82140; 82550; 82553; 82803; 83605; 83735; 84100; 84443; 84484; 85025; 85027; 85610; 85730; 86850; 86900; 86901; 86922; 87040; 87077; 87086; 87186; 93005; 93010; 94640; 97116-GP; 97162-GP; 99285-25; C9803-CS; J1644; P9058; U0003; U0005